=== PATIENT | female | born 1965 | race Caucasian/White ===

== ENCOUNTER → 2016-08-05 | Outpatient (CLI) | payer OTHER ==
[2016-08-06 08:00] LABS: BASOPHIL % 0.7 % (0-2); PLATELET COUNT 299 x10^3mcL (130-400)
[2016-08-06 08:09] LABS: RED CELL DISTRIBUTION WIDTH 20.2 % (11.5-14.5)
[2016-08-06 08:31] LABS: IRON 17 ug/dL (50-170); TOTAL IRON BINDING CAPACITY 449 ug/dL (250-450)
[2016-08-06 09:46] LABS: ALBUMIN 3.7 g/dL (3.4-5.0); ALKALINE PHOSPHATASE 74 U/L (46-116); ALT/SGPT 38 U/L (14-59); AST/SGOT 24 U/L (15-37); BILIRUBIN TOTAL 0.28 mg/dL (0.20-1.00); CALCIUM 8.4 mg/dL (8.5-10.1); CARBON DIOXIDE 27.1 mmol/L (21-32); CHLORIDE SERUM 107 mmol/L (98-107); CHOLESTEROL 142 mg/dL (<200); CREATININE SERUM 0.6 mg/dL (0.6-1.0); FREE T4 0.74 ng/dL (0.76-1.46); GFR1 > 60 mL/min; GLUCOSE SERUM 93 mg/dL (74-106); POTASSIUM SERUM 4.2 mmol/L (3.5-5.1); SODIUM SERUM 144 mmol/L (136-145); TOTAL PROTEIN, SERUM 7.7 g/dL (6.4-8.2)
[2016-08-06 10:25] LABS: CHOLESTEROL/HDL RATIO 4.9; HDL CHOLESTEROL 29 mg/dL (40-60); TRIGLYCERIDES 260 mg/dL (<150)
[2016-08-06 12:53] LABS: rbc morphology (normal/abnorm) ABNORMAL (NORMAL); tear drop cell (dacryocyte) 2+
[2016-08-07 08:28] LABS: VITAMIN D 25-HYDROXY 22.3 ng/mL (30.0-100.0)
== END | disposition home or self-care (01) ==
LOC: MA 11:45
DX: Z12.39 Encounter for other screening for malignant neoplasm of breast (principal); D64.9 Anemia, unspecified; E66.3 Overweight
CPT/HCPCS: 84439; G0202

== ENCOUNTER → 2016-08-28 | Outpatient (CLI) | payer OTHER | END | disposition home or self-care (01) | LOC: MA 08:07 | PROC: BH02ZZZ Plain Radiography of Bilateral Breasts (ICD-10-PCS; principal; 2016-08-28) | DX: R92.1 Mammographic calcification found on diagnostic imaging of breast (principal) | CPT/HCPCS: G0206 ==

== ENCOUNTER → 2016-09-11 | Outpatient (CLI) | payer OTHER | END | disposition home or self-care (01) | LOC: MA 11:48 | PROC: BH01ZZZ Plain Radiography of Left Breast (ICD-10-PCS; principal; 2016-09-11) | DX: R92.8 Other abnormal and inconclusive findings on diagnostic imaging of breast (principal) | CPT/HCPCS: G0206 ==

== ENCOUNTER → 2019-09-28 | Outpatient (CLI) | payer OTHER ==
[2019-09-28 08:13] LABS: BASOPHIL % 0.7 % (0-2); PLATELET COUNT 222 x10^3mcL (130-400)
[2019-09-28 08:26] LABS: RED CELL DISTRIBUTION WIDTH 18.9 % (11.5-14.5)
[2019-09-28 08:29] LABS: ALBUMIN 3.6 g/dL (3.4-5.0); ALKALINE PHOSPHATASE 100 U/L (46-116); ALT/SGPT 78 U/L (14-59); AST/SGOT 40 U/L (15-37); BILIRUBIN TOTAL 0.34 mg/dL (0.20-1.00); CALCIUM 8.8 mg/dL (8.5-10.1); CARBON DIOXIDE 27.6 mmol/L (21-32); CHLORIDE SERUM 103 mmol/L (98-107); CHOLESTEROL 189 mg/dL (<200); CREATININE SERUM 0.6 mg/dL (0.6-1.0); FREE T4 0.81 ng/dL (0.76-1.46); GFR1 > 60 mL/min; GLUCOSE SERUM 91 mg/dL (74-106); POTASSIUM SERUM 3.6 mmol/L (3.5-5.1); SODIUM SERUM 139 mmol/L (136-145); TOTAL PROTEIN, SERUM 7.8 g/dL (6.4-8.2)
[2019-09-28 08:36] LABS: CHOLESTEROL/HDL RATIO 5.9; HDL CHOLESTEROL 32 mg/dL (40-60); TRIGLYCERIDES 222 mg/dL (<150)
== END | disposition home or self-care (01) ==
LOC: RD 06:48
PROVIDERS: ATTEND Family Medicine
DX: Z01.419 Encounter for gynecological examination (general) (routine) without abnormal findings (principal); M79.671 Pain in right foot; M25.511 Pain in right shoulder
CPT/HCPCS: 84439